=== PATIENT | female | born 1995 | race African-American/Black ===

== ENCOUNTER 2020-06-20 23:25 | Inpatient (IN) | payer OTHER ==
[2020-06-20 23:32] VITALS: BMI 18.8
[2020-06-21 01:20] LABS: BASO % 1.9 % (0-2.0); LYMPH % 46.8 % (8-40); MCHC 27.8 g/dl (32.0-36.0); MEAN CELL VOLUME 54.8 fl (80-96); MEAN PLT VOLUME 8.9 fl (7.5-11.1); MONO % 9.9 % (3.8-10.2); NEUT % 40.4 % (42.8-82.8); PLATELET COUNT 370 K/MM3 (134-434); RDW 20.5 % (11.6-15.6); WHITE BLOOD COUNT 5.7 K/mm3 (4.0-10.0)
[2020-06-21 01:24] LABS: MCH 15.2 pg (25.7-33.7)
[2020-06-21 01:26] LABS: HEMOGLOBIN 6.4 GM/dL (10.7-15.3)
[2020-06-21 01:39] LABS: PHENCYCLIDINE,URINE NEGATIVE ng/ml (CUTOFF=25); URINE BARBITURATES NEGATIVE ng/ml (CUTOFF=200); URINE BENZODIAZEPINES NEGATIVE ng/ml (CUTOFF=200)
[2020-06-21 01:40] LABS: CALCIUM 8.7 mg/dL (8.5-10.1); COCAINE, UR NEGATIVE ng/ml (CUTOFF=300); METHADONE, UR NEGATIVE ng/ml (CUTOFF=300); URINE AMPHETAMINES NEGATIVE ng/ml (CUTOFF=500)
[2020-06-21 01:41] LABS: ALBUMIN 4.3 g/dl (3.4-5.0); BLOOD UREA NITROGEN 9.2 mg/dL (7-18)
[2020-06-21 01:44] LABS: CREATININE 0.7 mg/dL (0.55-1.3)
[2020-06-21 01:46] LABS: BILIRUBIN,TOTAL 0.4 mg/dL (0.2-1); TOT PROT 8.1 g/dl (6.4-8.2)
[2020-06-21 01:49] LABS: OPIATES, URI POSITIVE ng/ml (CUTOFF=300)
[2020-06-21 07:34] LABS: ANISOCYTOSIS 2+; MACROCYTOSIS 0; PLATELET ESTIMATE NORMAL
[2020-06-21 08:55] LABS: HEMATOCRIT 25.7 % (32.4-45.2); HEMOGLOBIN 7.4 GM/dL (10.7-15.3); MCHC 28.9 g/dl (32.0-36.0); MEAN CELL VOLUME 58.7 fl (80-96); MEAN PLT VOLUME 9.6 fl (7.5-11.1); PLATELET COUNT 311 K/MM3 (134-434); RBC 4.38 M/mm3 (3.60-5.2); RDW 21.2 % (11.6-15.6); RETICULOCYTES 1.12 % (0.5-1.5); WHITE BLOOD COUNT 4.1 K/mm3 (4.0-10.0)
[2020-06-21 09:02] LABS: INR 1.14 (0.83-1.09); PROTHROMBIN TIME (PATIENT) 13.7 SEC (9.7-13.0)
[2020-06-21 09:05] LABS: ACTIVATED PTT 31.3 SECONDS (25.2-36.5)
[2020-06-21 09:14] LABS: CHLORIDE 107 mmol/L (98-107); SODIUM 140 mmol/L (136-145)
[2020-06-21 09:16] LABS: ANION GAP 4 MMOL/L (8-16); BLOOD UREA NITROGEN 9.4 mg/dL (7-18); CO2 29 mmol/L (21-32); GLUCOSE,RANDOM 84 mg/dL (74-106); MAGNESIUM 1.9 mg/dL (1.8-2.4)
[2020-06-21 09:17] LABS: ALBUMIN 3.7 g/dl (3.4-5.0); CALCIUM 8.7 mg/dL (8.5-10.1)
[2020-06-21 09:19] LABS: SGPT/ALT 10 U/L (13-61)
[2020-06-21 09:20] LABS: CREATININE 0.7 mg/dL (0.55-1.3); SGOT/AST 12 U/L (15-37)
[2020-06-21 09:21] LABS: BILIRUBIN,TOTAL 1.5 mg/dL (0.2-1)
[2020-06-21 09:22] LABS: ALK PHOS 58 U/L (45-117)
[2020-06-21] MEDS ORDERED: ENOXAPARIN NA (PORCINE) 40 MG/0.4 ML DISP.SYRIN SQ SCH (10:00)
[2020-06-21] MEDS ORDERED: ENOXAPARIN NA (PORCINE) 40 MG/0.4 ML DISP.SYRIN SQ ONE (10:28)
[2020-06-21] MEDS ORDERED: IRON SUCROSE INJECTION 200 MG in SODIUM CHLORIDE 90 ML IVPB ONE (10:30)
[2020-06-21 15:04] VITALS: BP 105/67; PULSE 91; TEMP 98.9
[2020-06-23 12:07] LABS: RISTOCETIN CO-FACTOR 89 % (50-200); VON WILLEBRAND ANTIGEN 160 % (50-200)
== END 2020-06-21 14:50 | disposition home or self-care (01) | DRG 663 ==
LOC: JER 23:25 → JERBED 06-21 02:03
PROVIDERS: ADMIT Internal Medicine; ATTEND Internal Medicine
PROC: 30233N1 Transfusion of Nonautologous Red Blood Cells into Peripheral Vein, Percutaneous Approach (ICD-10-PCS; principal; 2020-06-21)
DX: D50.9 Iron deficiency anemia, unspecified (principal); J45.909 Unspecified asthma, uncomplicated; F12.10 Cannabis abuse, uncomplicated; F11.10 Opioid abuse, uncomplicated; M79.661 Pain in right lower leg; T40.2X5A Adverse effect of other opioids, initial encounter; D25.9 Leiomyoma of uterus, unspecified
CPT/HCPCS: 36415; 36430; 74176-TC; 76856-TC; 80053; 80307; 82728; 83021; 83540; 83550; 83735; 84484; 84703; 85025; 85027; 85045; 85240; 85246; 85610; 85660; 85730; 86850; 86900; 86901; 86922; 93005; 93010; 99285-25; C9803; J1756; P9058; U0003; U0005

== ENCOUNTER 2020-07-03 19:25 | Emergency (ER) | payer OTHER ==
[2020-07-03 19:30] VITALS: TEMP 97; BMI 19.2
[2020-07-03] MEDS ORDERED: ONDANSETRON 4 MG/2 ML VIAL IVPUSH ONE (20:02)
[2020-07-03] MEDS ORDERED: SODIUM CHLORIDE 0.9% 500 ML INFUS.BAG IV ONE (20:02)
[2020-07-03] MEDS ORDERED: ONDANSETRON 4 MG/2 ML VIAL ONE (20:13)
[2020-07-03 20:34] LABS: BASO % 0.7 % (0-2.0); EOS % 0.2 % (0-4.5); HEMATOCRIT 31.4 % (32.4-45.2); HEMOGLOBIN 9.1 GM/dL (10.7-15.3); LYMPH % 13.6 % (8-40); MCHC 28.9 g/dl (32.0-36.0); MEAN CELL VOLUME 61.2 fl (80-96); MONO % 5.6 % (3.8-10.2); NEUT % 79.9 % (42.8-82.8); RBC 5.12 M/mm3 (3.60-5.2); RDW 28.4 % (11.6-15.6); WHITE BLOOD COUNT 9.5 K/mm3 (4.0-10.0)
[2020-07-03 20:37] LABS: MCH 17.7 pg (25.7-33.7)
[2020-07-03 20:54] LABS: CALCIUM 9.8 mg/dL (8.5-10.1)
[2020-07-03 20:55] LABS: BLOOD UREA NITROGEN 7.9 mg/dL (7-18)
[2020-07-03 20:58] LABS: CREATININE 0.7 mg/dL (0.55-1.3)
[2020-07-03 21:00] LABS: BILIRUBIN,TOTAL 0.5 mg/dL (0.2-1); TOT PROT 8.8 g/dl (6.4-8.2)
[2020-07-03 21:14] LABS: ANISOCYTOSIS 2+; MACROCYTOSIS 0; OVALOCYTE 1+; PLATELET ESTIMATE NORMAL; TARGET CELLS 1+
[2020-07-03 21:15] LABS: PLATELET COUNT 210 K/MM3 (134-434)
[2020-07-03 21:16] LABS: MEAN PLT VOLUME 9.6 fl (7.5-11.1)
[2020-07-03 21:30] LABS: HCG,QUALITATIVE URINE Negative
[2020-07-03 21:31] LABS: EPI CELLS 16 /uL (0-25.1); HYALINE CASTS 5 /uL (0-3.1); PH,URINE 6.5 (5.0-8.0); URINE APPEARANCE TURBID; URINE BACTERIA 417 /uL (0-1359); URINE BILIRUBIN NEGATIVE (NEGATIVE); URINE COLOR DK YELLOW; URINE GLUCOSE (UA) NEGATIVE (NEGATIVE); URINE KETONE 3+ (NEGATIVE); URINE LEUK ESTERASE 3+ (NEGATIVE); URINE NITRITE NEGATIVE (NEGATIVE); URINE PROTEIN 2+ (NEGATIVE); URINE RBC 801 /uL (0-23.9); URINE WBC 6447 /uL (0-25.8)
[2020-07-03 21:32] LABS: ALBUMIN 4.7 g/dl (3.4-5.0)
[2020-07-03 22:01] VITALS: BP 110/74; PULSE 99
== END 2020-07-03 22:02 | disposition home or self-care (01) ==
LOC: JER 19:25
PROC: 3E033GC Introduction of Other Therapeutic Substance into Peripheral Vein, Percutaneous Approach (ICD-10-PCS; principal; 2020-07-03)
DX: N39.0 Urinary tract infection, site not specified (principal)
CPT/HCPCS: 36415; 80053; 81003; 84703; 85025; 87086; 87186; 99284-25

== ENCOUNTER 2020-08-19 15:33 | Emergency (ER) | payer OTHER ==
[2020-08-19 15:44] VITALS: BP 105/69; PULSE 96; TEMP 98.1; BMI 18.8
[2020-08-19] MEDS ORDERED: KETOROLAC TROMETHAMINE 60 MG/2 ML VIAL IVPUSH ONE (16:18)
[2020-08-19] MEDS ORDERED: FAMOTIDINE 20 MG/50 ML IVPB 20 MG/50 ML MG IVPB ONE ×2 (16:19→17:38)
[2020-08-19] MEDS ORDERED: LIDOCAINE 5% TOPICAL PATCH TP ONE (16:20)
[2020-08-19] MEDS ORDERED: KETOROLAC TROMETHAMINE 30 MG/1 ML VIAL ONE ×2 (17:37→17:38)
[2020-08-19] MEDS ORDERED: LIDOCAINE 5% TOPICAL PATCH ONE ×2 (17:37→17:38)
[2020-08-19 18:23] LABS: PH,URINE >= 9.0 (5.0-8.0); URINE APPEARANCE CLEAR; URINE BILIRUBIN NEGATIVE (NEGATIVE); URINE COLOR YELLOW; URINE GLUCOSE (UA) NEGATIVE (NEGATIVE); URINE KETONE NEGATIVE (NEGATIVE); URINE LEUK ESTERASE NEGATIVE (NEGATIVE); URINE NITRITE NEGATIVE (NEGATIVE); URINE PROTEIN NEGATIVE (NEGATIVE)
[2020-08-19 18:33] LABS: COCAINE, UR NEGATIVE (NEGATIVE); URINE BARBITURATES NEGATIVE (NEGATIVE)
[2020-08-19 18:34] LABS: OPIATES, URI NEGATIVE (NEGATIVE); PHENCYCLIDINE,URINE NEGATIVE (NEGATIVE)
[2020-08-19 18:38] LABS: METHADONE, UR NEGATIVE (NEGATIVE); URINE AMPHETAMINES NEGATIVE (NEGATIVE); URINE BENZODIAZEPINES NEGATIVE (NEGATIVE)
== END 2020-08-19 19:26 | disposition home or self-care (01) ==
LOC: JER 15:33
PROC: 3E033GC Introduction of Other Therapeutic Substance into Peripheral Vein, Percutaneous Approach (ICD-10-PCS; principal; 2020-08-19)
PROC: 3E0333Z Introduction of Anti-inflammatory into Peripheral Vein, Percutaneous Approach (ICD-10-PCS; 2020-08-19)
DX: R11.11 Vomiting without nausea (principal)
CPT/HCPCS: 80307; 81003; 87086; 87186; 99284-25

== ENCOUNTER 2020-08-26 04:30 | Emergency (ER) | payer OTHER ==
[2020-08-26 04:46] VITALS: BP 116/68; PULSE 91; TEMP 98.5; BMI 18.3
[2020-08-26] MEDS ORDERED: METOCLOPRAMIDE HCL INJECTION 10 MG/2 ML VIAL IVPB ONE (05:23)
[2020-08-26] MEDS ORDERED: ACETAMINOPHEN 1000 MG/100 ML VIAL (NON FORMULARY) IVPB ONE (05:24)
[2020-08-26] MEDS ORDERED: SODIUM CHLORIDE 0.9% 1000 ML INFUS.BAG IV ONE (05:24)
[2020-08-26] MEDS ORDERED: METOCLOPRAMIDE HCL INJECTION 10 MG/2 ML VIAL ONE (05:36)
[2020-08-26] MEDS ORDERED: ACETAMINOPHEN INJECTION 100 ML IVPB ONE (05:36)
[2020-08-26 06:29] LABS: BASO % 1.2 % (0-2.0); EOS % 0.3 % (0-4.5); HEMATOCRIT 28.3 % (32.4-45.2); HEMOGLOBIN 8.2 GM/dL (10.7-15.3); LYMPH % 21.3 % (8-40); MCHC 29.2 g/dl (32.0-36.0); MEAN CELL VOLUME 63.4 fl (80-96); MONO % 8.5 % (3.8-10.2); NEUT % 68.7 % (42.8-82.8); PLATELET COUNT 174 10^3/uL (134-434); RBC 4.46 M/mm3 (3.60-5.2); RDW 21.6 % (11.6-15.6); WHITE BLOOD COUNT 6.1 K/mm3 (4.0-10.0)
[2020-08-26 06:32] LABS: EPI CELLS 18 /uL (0-25.1); HYALINE CASTS 0 /uL (0-3.1); URINE APPEARANCE CLEAR; URINE BACTERIA 205 /uL (0-1359); URINE BILIRUBIN NEGATIVE (NEGATIVE); URINE COLOR YELLOW; URINE GLUCOSE (UA) NEGATIVE (NEGATIVE); URINE KETONE NEGATIVE (NEGATIVE); URINE LEUK ESTERASE TRACE (NEGATIVE); URINE NITRITE NEGATIVE (NEGATIVE); URINE PROTEIN NEGATIVE (NEGATIVE); URINE RBC 5 /uL (0-23.9); URINE WBC 12 /uL (0-25.8)
[2020-08-26 06:34] LABS: MCH 18.5 pg (25.7-33.7)
[2020-08-26 06:48] LABS: CALCIUM 8.6 mg/dL (8.5-10.1)
[2020-08-26 06:52] LABS: CREATININE 0.6 mg/dL (0.55-1.3)
[2020-08-26 06:53] LABS: BILIRUBIN,TOTAL 0.5 mg/dL (0.2-1); TOT PROT 7.8 g/dl (6.4-8.2)
[2020-08-26 08:14] LABS: ANISOCYTOSIS 3+; MACROCYTOSIS 0; PLATELET ESTIMATE NORMAL
== END 2020-08-26 07:03 | disposition home or self-care (01) ==
LOC: JER 04:30
PROC: 3E0333Z Introduction of Anti-inflammatory into Peripheral Vein, Percutaneous Approach (ICD-10-PCS; principal; 2020-08-26)
PROC: 3E033GC Introduction of Other Therapeutic Substance into Peripheral Vein, Percutaneous Approach (ICD-10-PCS; 2020-08-26)
DX: R30.0 Dysuria (principal); R51.9 Headache, unspecified; R10.9 Unspecified abdominal pain
CPT/HCPCS: 36415; 80053; 81003; 83690; 84703; 85025; 87086; 99284-25; J0131

== ENCOUNTER 2020-09-08 11:25 | Emergency (ER) | payer OTHER ==
[2020-09-08 11:30] VITALS: BP 105/66; PULSE 100; TEMP 98.2; BMI 18.8
[2020-09-08 13:43] LABS: BASO % 1.6 % (0-2.0); EOS % 0.6 % (0-4.5); HEMATOCRIT 26.9 % (32.4-45.2); HEMOGLOBIN 7.9 GM/dL (10.7-15.3); LYMPH % 36.7 % (8-40); MCHC 29.3 g/dl (32.0-36.0); MEAN CELL VOLUME 62.8 fl (80-96); MEAN PLT VOLUME 8.9 fl (7.5-11.1); MONO % 6.9 % (3.8-10.2); NEUT % 54.2 % (42.8-82.8); PLATELET COUNT 278 10^3/uL (134-434); RBC 4.29 M/mm3 (3.60-5.2); WHITE BLOOD COUNT 3.8 K/mm3 (4.0-10.0)
[2020-09-08 13:57] LABS: INR 1.03 (0.83-1.09); PROTHROMBIN TIME (PATIENT) 12.4 SEC (9.7-13.0)
[2020-09-08 13:58] LABS: MCH 18.4 pg (25.7-33.7)
[2020-09-08 14:03] LABS: CHLORIDE 108 mmol/L (98-107); SODIUM 142 mmol/L (136-145)
[2020-09-08 14:07] LABS: ANION GAP 7 MMOL/L (8-16); BLOOD UREA NITROGEN 9.2 mg/dL (7-18); CALCIUM 9.1 mg/dL (8.5-10.1); CO2 27 mmol/L (21-32); GLUCOSE,RANDOM 90 mg/dL (74-106)
[2020-09-08 14:10] LABS: CREATININE 0.6 mg/dL (0.55-1.3)
[2020-09-08 14:11] LABS: SGOT/AST 19 U/L (15-37); SGPT/ALT 24 U/L (13-61)
[2020-09-08 14:12] LABS: BILIRUBIN,TOTAL 0.4 mg/dL (0.2-1); TOT PROT 7.7 g/dl (6.4-8.2)
[2020-09-08 14:13] LABS: ALK PHOS 55 U/L (45-117)
[2020-09-08 14:57] LABS: ANISOCYTOSIS 3+; MACROCYTOSIS 0; PLATELET ESTIMATE NORMAL
== END 2020-09-08 15:14 | disposition home or self-care (01) ==
LOC: JER 11:25
DX: D64.9 Anemia, unspecified (principal)
CPT/HCPCS: 36415; 80053; 84484; 84702; 85025; 85610; 86850; 86900; 86901; 99284-25

== ENCOUNTER 2020-12-05 00:19 | Emergency (ER) | payer OTHER ==
[2020-12-05 00:40] VITALS: BP 93/60; PULSE 101; TEMP 97.6; BMI 18.8
== END 2020-12-05 03:53 | disposition home or self-care (01) ==
LOC: JER 00:19
DX: R00.2 Palpitations (principal); R06.02 Shortness of breath; Z11.52 Encounter for screening for COVID-19
CPT/HCPCS: 71046-TC-FY; 93005; 93010; 99284-25; C9803; U0003; U0005

== ENCOUNTER 2021-02-07 18:38 | Observation (INO) | payer OTHER ==
[2021-02-07 18:55] VITALS: BMI 21.4
[2021-02-07] MEDS ORDERED: ACETAMINOPHEN 500 MG TABLET (FP) PO ONE (19:58)
[2021-02-07] MEDS ORDERED: ACETAMINOPHEN 500 MG TABLET (FP) ONE (20:18)
[2021-02-07 20:52] LABS: BASO % 1.5 % (0-2.0); EOS % 1.3 % (0-4.5); HEMATOCRIT 24.9 % (32.4-45.2); LYMPH % 22.1 % (8-40); MCHC 27.3 g/dl (32.0-36.0); MEAN CELL VOLUME 55.8 fl (80-96); MEAN PLT VOLUME 9.6 fl (7.5-11.1); MONO % 16.4 % (3.8-10.2); NEUT % 58.7 % (42.8-82.8); PLATELET COUNT 147 10^3/uL (134-434); RBC 4.45 M/mm3 (3.60-5.2); RDW 19.8 % (11.6-15.6); WHITE BLOOD COUNT 5.8 K/mm3 (4.0-10.0)
[2021-02-07 20:56] LABS: CHLORIDE 105 mmol/L (98-107); SODIUM 140 mmol/L (136-145)
[2021-02-07 20:58] LABS: CALCIUM 8.5 mg/dL (8.5-10.1); MCH 15.2 pg (25.7-33.7)
[2021-02-07 20:59] LABS: ALBUMIN 3.6 g/dl (3.4-5.0); ANION GAP 9 MMOL/L (8-16); BLOOD UREA NITROGEN 13.7 mg/dL (7-18); CO2 26 mmol/L (21-32); GLUCOSE,RANDOM 92 mg/dL (74-106); HEMOGLOBIN 6.8 GM/dL (10.7-15.3)
[2021-02-07 21:01] LABS: SGPT/ALT 18 U/L (13-61)
[2021-02-07 21:02] LABS: CREATININE 0.6 mg/dL (0.55-1.3); SGOT/AST 19 U/L (15-37)
[2021-02-07 21:03] LABS: BILIRUBIN,TOTAL 0.4 mg/dL (0.2-1); TOT PROT 7.5 g/dl (6.4-8.2)
[2021-02-07 21:05] LABS: ALK PHOS 54 U/L (45-117)
[2021-02-07 21:34] LABS: ANISOCYTOSIS 3+; MACROCYTOSIS 0; PLATELET ESTIMATE DECREASED
[2021-02-07 21:51] LABS: INR 1.11 (0.83-1.09)
[2021-02-07 21:54] LABS: ACTIVATED PTT 29.3 SECONDS (25.2-36.5)
[2021-02-07] MEDS ORDERED: SODIUM CHLORIDE 0.9% 500 ML INFUS.BAG IV ONE (22:12)
[2021-02-07] MEDS ORDERED: POLYETHYLENE GLYCOL (HEALTHYLAX) 3350 17 GM PACKET PO PRN (23:42)
[2021-02-08] MEDS ORDERED: ALBUTEROL SO4 HFA INHALER IH PRN (02:35)
[2021-02-08 07:27] LABS: EOS % 0.7 % (0-4.5); HEMATOCRIT 30.4 % (32.4-45.2); LYMPH % 13.7 % (8-40); MCHC 29.6 g/dl (32.0-36.0); MEAN CELL VOLUME 60.8 fl (80-96); MEAN PLT VOLUME 8.8 fl (7.5-11.1); MONO % 14.5 % (3.8-10.2); NEUT % 70.1 % (42.8-82.8); PLATELET COUNT 124 10^3/uL (134-434); RDW 27.4 % (11.6-15.6); WHITE BLOOD COUNT 7.1 K/mm3 (4.0-10.0)
[2021-02-08 07:43] VITALS: TEMP 98.8
[2021-02-08 07:46] LABS: CALCIUM 8.7 mg/dL (8.5-10.1)
[2021-02-08 07:47] LABS: ALBUMIN 3.4 g/dl (3.4-5.0); BLOOD UREA NITROGEN 10.5 mg/dL (7-18)
[2021-02-08 07:50] LABS: CREATININE 0.5 mg/dL (0.55-1.3)
[2021-02-08 07:51] LABS: BILIRUBIN,TOTAL 1.9 mg/dL (0.2-1)
[2021-02-08 07:52] LABS: TOT PROT 7.1 g/dl (6.4-8.2)
[2021-02-08] MEDS ORDERED: DOCUSATE SODIUM 100 MG CAPSULE (FP) PO ONE (07:52)
[2021-02-08] MEDS ORDERED: FERROUS SO4 325 MG TABLET (FP) ONE (07:52)
[2021-02-08 09:27] VITALS: BP 132/87; PULSE 95
[2021-02-08] MEDS ORDERED: FERROUS SO4 325 MG TABLET (FP) PO SCH (10:00)
[2021-02-08] MEDS ORDERED: DOCUSATE SODIUM 100 MG CAPSULE (FP) PO SCH (10:00)
== END 2021-02-08 14:05 | disposition left against medical advice (07) ==
LOC: JER 18:38 → JERBED 21:49
PROVIDERS: ADMIT Hospitalist; ATTEND Nurse Practitioner Acute Care
PROC: 30233N1 Transfusion of Nonautologous Red Blood Cells into Peripheral Vein, Percutaneous Approach (ICD-10-PCS; principal; 2021-02-07)
DX: D50.8 Other iron deficiency anemias (principal); R07.89 Other chest pain; N93.9 Abnormal uterine and vaginal bleeding, unspecified; J45.909 Unspecified asthma, uncomplicated; Z88.1 Allergy status to other antibiotic agents; N92.1 Excessive and frequent menstruation with irregular cycle; D22.71 Melanocytic nevi of right lower limb, including hip; L28.0 Lichen simplex chronicus
CPT/HCPCS: 36415; 36430; 71045-TC-FY; 80053; 82550; 84484; 84703; 85025; 85610; 85730; 86850; 86900; 86901; 86922; 87804; 93005; 93010; 99285-25; C9803-CS; G0378; P9058; U0003; U0005

== ENCOUNTER 2021-06-17 10:15 | Emergency (ER) | payer OTHER ==
[2021-06-17 10:25] VITALS: BP 111/73; PULSE 100; TEMP 97.4; BMI 19.5
== END 2021-06-17 11:34 | disposition home or self-care (01) ==
LOC: JERFT 10:15 → JER 10:15 → JERFT 11:34
PROC: 0H93XZZ Drainage of Left Ear Skin, External Approach (ICD-10-PCS; principal; 2021-06-17)
DX: L72.0 Epidermal cyst (principal)
CPT/HCPCS: 99283-25

== ENCOUNTER 2021-06-25 01:30 | Emergency (ER) | payer OTHER ==
[2021-06-25 01:51] VITALS: BP 117/72; PULSE 85; TEMP 98.4; BMI 20.3
[2021-06-25] MEDS ORDERED: ACETAMINOPHEN 325 MG TABLET (FP) PO ONE (03:50)
[2021-06-25] MEDS ORDERED: ACETAMINOPHEN 325 MG TABLET (FP) ONE (03:54)
[2021-06-25] MEDS ORDERED: KETOROLAC TROMETHAMINE 30 MG/1 ML VIAL IM ONE (04:26)
[2021-06-25] MEDS ORDERED: BUPIVACAINE HCL 0.25% 125 MG/50 ML VIAL INF ONE (04:32)
[2021-06-25] MEDS ORDERED: BUPIVACAINE HCL/PF 0.5% (5MG/ML) 10 ML VIAL ONE (04:42)
[2021-06-25] MEDS ORDERED: KETOROLAC TROMETHAMINE 30 MG/1 ML VIAL ONE (04:43)
== END 2021-06-25 05:31 | disposition home or self-care (01) ==
LOC: JER 01:30
PROC: 3E023GC Introduction of Other Therapeutic Substance into Muscle, Percutaneous Approach (ICD-10-PCS; principal; 2021-06-25)
DX: K08.89 Other specified disorders of teeth and supporting structures (principal)
CPT/HCPCS: 99284-25

== ENCOUNTER 2021-07-09 08:18 | Emergency (ER) | payer OTHER ==
[2021-07-09 08:46] VITALS: BP 115/71; PULSE 105; TEMP 98; BMI 20.3
== END 2021-07-09 09:49 | disposition home or self-care (01) ==
LOC: JER 08:18 → JERFT 08:18
DX: S60.042A Contusion of left ring finger without damage to nail, initial encounter (principal); W20.8XXA Other cause of strike by thrown, projected or falling object, initial encounter
CPT/HCPCS: 73140-TC-LT-FY; 99283-25

== ENCOUNTER 2021-09-05 11:30 | Emergency (ER) | payer OTHER ==
[2021-09-05 11:44] VITALS: RESP 18; TEMP 98.9; BMI 20.3
[2021-09-05] MEDS ORDERED: SODIUM CHLORIDE 1,000 ML IV ONE (12:36)
[2021-09-05] MEDS ORDERED: METOCLOPRAMIDE HCL INJECTION 10 MG/2 ML VIAL IVPUSH ONE (12:37)
[2021-09-05] MEDS ORDERED: METOCLOPRAMIDE HCL INJECTION 10 MG/2 ML VIAL ONE (12:42)
[2021-09-05 12:50] LABS: BASO % 1.2 % (0-2.0); EOS % 0.9 % (0-4.5); HEMATOCRIT 27.9 % (32.4-45.2); HEMOGLOBIN 7.9 GM/dL (10.7-15.3); LYMPH % 30.4 % (8-40); MCHC 28.4 g/dl (32.0-36.0); MEAN CELL VOLUME 57.9 fl (80-96); MEAN PLT VOLUME 8.6 fl (7.5-11.1); MONO % 8.7 % (3.8-10.2); NEUT % 58.8 % (42.8-82.8); PLATELET COUNT 280 10^3/uL (134-434); RBC 4.82 M/mm3 (3.60-5.2); RDW 18.9 % (11.6-15.6); WHITE BLOOD COUNT 4.6 K/mm3 (4.0-10.0)
[2021-09-05 13:04] LABS: CHLORIDE 105 mmol/L (98-107); SODIUM 140 mmol/L (136-145)
[2021-09-05 13:06] LABS: ALBUMIN 4.3 g/dl (3.4-5.0); ANION GAP 7 MMOL/L (8-16); CALCIUM 9.4 mg/dL (8.5-10.1); CO2 28 mmol/L (21-32)
[2021-09-05 13:07] LABS: BLOOD UREA NITROGEN 6.5 mg/dL (7-18); GLUCOSE,RANDOM 75 mg/dL (74-106)
[2021-09-05 13:09] LABS: SGPT/ALT 19 U/L (13-61)
[2021-09-05 13:10] LABS: CREATININE 0.6 mg/dL (0.55-1.3); SGOT/AST 22 U/L (15-37)
[2021-09-05 13:11] LABS: BILIRUBIN,TOTAL 0.9 mg/dL (0.2-1); TOT PROT 8.4 g/dl (6.4-8.2)
[2021-09-05 13:13] LABS: ALK PHOS 61 U/L (45-117)
[2021-09-05 14:07] LABS: MCH 16.5 pg (25.7-33.7)
[2021-09-05 14:44] LABS: ANISOCYTOSIS 3+; MACROCYTOSIS 0
[2021-09-05 14:48] LABS: EPI CELLS 20 /uL (0-25.1); HYALINE CASTS 1 /uL (0-3.1); PH,URINE 6.5 (5.0-8.0); URINE APPEARANCE CLEAR; URINE BACTERIA 313 /uL (0-1359); URINE BILIRUBIN NEGATIVE (NEGATIVE); URINE COLOR YELLOW; URINE GLUCOSE (UA) NEGATIVE (NEGATIVE); URINE KETONE NEGATIVE (NEGATIVE); URINE LEUK ESTERASE NEGATIVE (NEGATIVE); URINE NITRITE NEGATIVE (NEGATIVE); URINE PROTEIN NEGATIVE (NEGATIVE); URINE RBC 6 /uL (0-23.9); URINE WBC 6 /uL (0-25.8)
[2021-09-05 15:08] VITALS: BP 109/68; PULSE 93
== END 2021-09-05 15:07 | disposition home or self-care (01) ==
LOC: JER 11:30
PROC: 3E033GC Introduction of Other Therapeutic Substance into Peripheral Vein, Percutaneous Approach (ICD-10-PCS; principal; 2021-09-05)
PROC: 3E033GC Introduction of Other Therapeutic Substance into Peripheral Vein, Percutaneous Approach (ICD-10-PCS; 2021-09-05)
PROC: 3E0337Z Introduction of Electrolytic and Water Balance Substance into Peripheral Vein, Percutaneous Approach (ICD-10-PCS; 2021-09-05)
DX: D64.9 Anemia, unspecified (principal)
CPT/HCPCS: 36415; 71045-TC-FY; 80053; 81003; 84484; 85025; 86850; 86900; 86901; 93005; 93010; 99285-25

== ENCOUNTER 2022-02-05 09:50 | Emergency (ER) | payer OTHER ==
[2022-02-05 09:55] VITALS: BP 112/63; PULSE 94; RESP 18; TEMP 98.2; BMI 19.5
[2022-02-05] MEDS ORDERED: CYCLOBENZAPRINE HCL 10 MG TABLET (FP) PO ONE ×2 (10:36→11:09)
[2022-02-05] MEDS ORDERED: IBUPROFEN 600 MG TABLET (FP) PO ONE (10:36)
[2022-02-05] MEDS ORDERED: ACETAMINOPHEN 500 MG TABLET (FP) PO ONE (10:36)
== END 2022-02-05 11:46 | disposition home or self-care (01) ==
LOC: JERFT 09:50
DX: M25.561 Pain in right knee (principal); X50.0XXA Overexertion from strenuous movement or load, initial encounter
CPT/HCPCS: 73562-TC-RT-FY; 99283-25

== ENCOUNTER 2022-02-25 10:36 | Observation (INO) | payer OTHER ==
[2022-02-25 11:22] LABS: EOS % 0.5 % (0-4.5); HEMATOCRIT 24.8 % (32.4-45.2); LYMPH % 35.4 % (8-40); MCHC 27.4 g/dl (32.0-36.0); MEAN CELL VOLUME 55.6 fl (80-96); MEAN PLT VOLUME 8.8 fl (7.5-11.1); MONO % 6.7 % (3.8-10.2); NEUT % 56.4 % (42.8-82.8); PLATELET COUNT 170 10^3/uL (134-434); RBC 4.45 M/mm3 (3.60-5.2); RDW 20.3 % (11.6-15.6); WHITE BLOOD COUNT 5.1 K/mm3 (4.0-10.0)
[2022-02-25 11:30] LABS: MCH 15.2 pg (25.7-33.7)
[2022-02-25 11:31] LABS: HEMOGLOBIN 6.8 GM/dL (10.7-15.3)
[2022-02-25 11:48] LABS: CALCIUM 9.2 mg/dL (8.5-10.1)
[2022-02-25 11:49] LABS: ALBUMIN 4.2 g/dl (3.4-5.0); BLOOD UREA NITROGEN 10.1 mg/dL (7-18)
[2022-02-25 11:52] LABS: CREATININE 0.6 mg/dL (0.55-1.3)
[2022-02-25 11:54] LABS: BILIRUBIN,TOTAL 0.4 mg/dL (0.2-1); TOT PROT 7.6 g/dl (6.4-8.2)
[2022-02-25 12:34] LABS: ANISOCYTOSIS 3+; MACROCYTOSIS 0; OVALOCYTE 1+
[2022-02-25 12:46] LABS: INR 1.11 (0.83-1.09); PROTHROMBIN TIME (PATIENT) 12.8 SEC (9.7-13.0)
[2022-02-25 17:09] LABS: URINE APPEARANCE CLEAR; URINE BILIRUBIN NEGATIVE (NEGATIVE); URINE COLOR YELLOW; URINE GLUCOSE (UA) NEGATIVE (NEGATIVE); URINE KETONE NEGATIVE (NEGATIVE); URINE LEUK ESTERASE NEGATIVE (NEGATIVE); URINE NITRITE NEGATIVE (NEGATIVE); URINE PROTEIN NEGATIVE (NEGATIVE); URINE UROBILINOGEN 0.2 mg/dL (0.2-1.0)
[2022-02-25 21:03] LABS: EOS % 1.3 % (0-4.5); HEMATOCRIT 25.1 % (32.4-45.2); HEMOGLOBIN 7.3 GM/dL (10.7-15.3); LYMPH % 41.6 % (8-40); MEAN CELL VOLUME 58.6 fl (80-96); MONO % 10.1 % (3.8-10.2); RBC 4.28 M/mm3 (3.60-5.2); RDW 22.6 % (11.6-15.6); WHITE BLOOD COUNT 5.7 K/mm3 (4.0-10.0)
[2022-02-25 21:05] LABS: MEAN PLT VOLUME 9.4 fl (7.5-11.1); PLATELET COUNT 150 10^3/uL (134-434)
[2022-02-25] MEDS ORDERED: DOCUSATE SODIUM 100 MG CAPSULE (FP) PO ONE (22:41)
[2022-02-25] MEDS: DOCUSATE SODIUM 100 MG CAPSULE (FP) PO SCH ×2 (22:41→22:48)
[2022-02-26 08:45] LABS: BASO % 0.9 % (0-2.0); EOS % 1.4 % (0-4.5); HEMATOCRIT 29.6 % (32.4-45.2); HEMOGLOBIN 8.5 GM/dL (10.7-15.3); LYMPH % 30.6 % (8-40); MCHC 28.6 g/dl (32.0-36.0); MEAN CELL VOLUME 58.8 fl (80-96); MEAN PLT VOLUME 9.2 fl (7.5-11.1); MONO % 8.2 % (3.8-10.2); NEUT % 58.9 % (42.8-82.8); PLATELET COUNT 173 10^3/uL (134-434); RBC 5.03 M/mm3 (3.60-5.2); RDW 21.4 % (11.6-15.6)
[2022-02-26 08:50] LABS: MCH 16.9 pg (25.7-33.7)
[2022-02-26 09:04] LABS: CALCIUM 9.2 mg/dL (8.5-10.1)
[2022-02-26 09:05] VITALS: PULSE 90; BMI 18.6
[2022-02-26 09:05] LABS: MAGNESIUM 1.9 mg/dL (1.8-2.4)
[2022-02-26 09:08] LABS: CREATININE 0.6 mg/dL (0.55-1.3); PHOSPHOROUS 3.2 mg/dL (2.5-4.9)
[2022-02-26 09:09] LABS: TOT PROT 7.5 g/dl (6.4-8.2)
[2022-02-26] MEDS ORDERED: IRON SUCROSE INJECTION 200 MG in SODIUM CHLORIDE 90 ML IVPB ONE (10:00)
[2022-02-26] MEDS: DOCUSATE SODIUM 100 MG CAPSULE (FP) PO SCH (10:27)
[2022-02-26 16:01] VITALS: BP 102/61; RESP 18; TEMP 98.6
[2022-02-26] MEDS ORDERED: POLYETHYLENE GLYCOL (HEALTHYLAX) 3350 17 GM PACKET PO SCH (22:00)
== END 2022-02-26 16:32 | disposition home or self-care (01) ==
LOC: JER 10:36 → JERBED 16:04 → J8W 02-26 07:46
PROVIDERS: ADMIT Internal Medicine; ATTEND Internal Medicine
PROC: 30233N1 Transfusion of Nonautologous Red Blood Cells into Peripheral Vein, Percutaneous Approach (ICD-10-PCS; principal; 2022-02-25)
DX: D50.0 Iron deficiency anemia secondary to blood loss (chronic) (principal); N93.9 Abnormal uterine and vaginal bleeding, unspecified; J45.909 Unspecified asthma, uncomplicated; K59.00 Constipation, unspecified; Z88.0 Allergy status to penicillin
CPT/HCPCS: 0241U-QW; 36415; 36430; 74178-TC; 80053; 81003; 82272; 82728; 83010; 83540; 83550; 83735; 84100; 84466; 84703; 85025; 85610; 85730; 86850; 86900; 86901; 86922; 87086; 94010; 99291; G0378; J1756; P9058

== ENCOUNTER 2022-05-10 18:59 | Emergency (ER) | payer OTHER ==
[2022-05-10 19:13] VITALS: BP 105/58; PULSE 90; RESP 18; TEMP 98.4; BMI 19.0
[2022-05-10] MEDS ORDERED: ACETAMINOPHEN 500 MG TABLET (FP) PO ONE (19:31)
[2022-05-10] MEDS ORDERED: ACETAMINOPHEN 325 MG TABLET (FP) ONE (19:39)
[2022-05-10 20:11] LABS: BASO % 0.4 % (0-2.0); HEMATOCRIT 28.3 % (32.4-45.2); HEMOGLOBIN 8.4 GM/dL (10.7-15.3); LYMPH % 6.2 % (8-40); MCHC 29.8 g/dl (32.0-36.0); MEAN PLT VOLUME 8.6 fl (7.5-11.1); MONO % 7.1 % (3.8-10.2); NEUT % 86.3 % (42.8-82.8); PLATELET COUNT 195 10^3/uL (134-434); RBC 4.49 M/mm3 (3.60-5.2); RDW 20.6 % (11.6-15.6); WHITE BLOOD COUNT 13.3 K/mm3 (4.0-10.0)
[2022-05-10 20:21] LABS: ALBUMIN 3.8 g/dl (3.4-5.0); CALCIUM 8.7 mg/dL (8.5-10.1)
[2022-05-10 20:22] LABS: BLOOD UREA NITROGEN 12.4 mg/dL (7-18); MCH 18.8 pg (25.7-33.7)
[2022-05-10 20:25] LABS: CREATININE 0.8 mg/dL (0.55-1.3)
[2022-05-10 20:26] LABS: BILIRUBIN,TOTAL 0.3 mg/dL (0.2-1); TOT PROT 7.5 g/dl (6.4-8.2)
[2022-05-10 21:46] LABS: ANISOCYTOSIS 3+; MACROCYTOSIS 1+; OVALOCYTE 1+; TARGET CELLS 1+
== END 2022-05-10 23:46 | disposition home or self-care (01) ==
LOC: JER 18:59
DX: M54.89 Other dorsalgia (principal); M79.89 Other specified soft tissue disorders; W10.8XXA Fall (on) (from) other stairs and steps, initial encounter
CPT/HCPCS: 36415; 71046-TC-FY; 71250-TC; 73590-TC-LT-FY; 73610-TC-LT-FY; 73630-TC-LT; 80053; 84703; 85025; 99284-25

== ENCOUNTER 2022-09-07 18:32 | Observation (INO) | payer OTHER ==
[2022-09-07 20:35] LABS: BASO % 1.1 % (0-2.0); EOS % 1.6 % (0-4.5); HEMATOCRIT 26.9 % (32.4-45.2); HEMOGLOBIN 7.6 GM/dL (10.7-15.3); LYMPH % 50.1 % (8-40); MCHC 28.4 g/dl (32.0-36.0); MEAN CELL VOLUME 59.3 fl (80-96); MEAN PLT VOLUME 8.4 fl (7.5-11.1); MONO % 12.5 % (3.8-10.2); NEUT % 34.7 % (42.8-82.8); PLATELET COUNT 183 10^3/uL (134-434); RBC 4.53 M/mm3 (3.60-5.2); RDW 19.3 % (11.6-15.6); WHITE BLOOD COUNT 4.4 K/mm3 (4.0-10.0)
[2022-09-07 20:42] LABS: MCH 16.8 pg (25.7-33.7)
[2022-09-07 20:47] LABS: INR 1.07 (0.83-1.09); PROTHROMBIN TIME (PATIENT) 12.4 SEC (9.7-13.0)
[2022-09-07 20:50] LABS: ACTIVATED PTT 28.4 SECONDS (25.2-36.5); POTASSIUM 3.6 mmol/L (3.5-5.1)
[2022-09-07 20:52] LABS: ALBUMIN 3.9 g/dl (3.4-5.0); CALCIUM 8.9 mg/dL (8.5-10.1)
[2022-09-07 20:53] LABS: BLOOD UREA NITROGEN 9.7 mg/dL (7-18)
[2022-09-07 20:55] LABS: CREATININE 0.7 mg/dL (0.55-1.3)
[2022-09-07 20:57] LABS: BILIRUBIN,TOTAL 0.3 mg/dL (0.2-1); TOT PROT 7.5 g/dl (6.4-8.2)
[2022-09-07 21:34] LABS: ANISOCYTOSIS 2+; MACROCYTOSIS 0; OVALOCYTE 1+; TARGET CELLS 1+
[2022-09-07 21:55] LABS: EPI CELLS 9 /uL (0-25.1); HYALINE CASTS 2 /uL (0-3.1); URINE APPEARANCE CLEAR; URINE BACTERIA 5 /uL (0-1359); URINE BILIRUBIN NEGATIVE (NEGATIVE); URINE COLOR YELLOW; URINE GLUCOSE (UA) NEGATIVE (NEGATIVE); URINE KETONE TRACE (NEGATIVE); URINE LEUK ESTERASE NEGATIVE (NEGATIVE); URINE NITRITE NEGATIVE (NEGATIVE); URINE PROTEIN TRACE (NEGATIVE); URINE RBC 211 /uL (0-23.9); URINE WBC 12 /uL (0-25.8)
[2022-09-07] MEDS ORDERED: ACETAMINOPHEN 325 MG TABLET (FP) PO PRN (22:40)
[2022-09-07] MEDS ORDERED: DOCUSATE SODIUM 100 MG CAPSULE (FP) PO PRN (22:40)
[2022-09-08 06:51] VITALS: RESP 18
[2022-09-08 06:51] LABS: POTASSIUM 3.7 mmol/L (3.5-5.1)
[2022-09-08 06:55] LABS: BLOOD UREA NITROGEN 7.6 mg/dL (7-18); CALCIUM 8.6 mg/dL (8.5-10.1); MAGNESIUM 1.9 mg/dL (1.8-2.4)
[2022-09-08 06:58] LABS: PHOSPHOROUS 4.2 mg/dL (2.5-4.9)
[2022-09-08 06:59] LABS: CREATININE 0.6 mg/dL (0.55-1.3)
[2022-09-08 07:21] LABS: BASO % 0.7 % (0-2.0); EOS % 1.9 % (0-4.5); HEMATOCRIT 30.5 % (32.4-45.2); HEMOGLOBIN 9.1 GM/dL (10.7-15.3); MEAN CELL VOLUME 62.5 fl (80-96); MEAN PLT VOLUME 8.9 fl (7.5-11.1); MONO % 14.6 % (3.8-10.2); NEUT % 37.8 % (42.8-82.8); PLATELET COUNT 163 10^3/uL (134-434); RBC 4.88 M/mm3 (3.60-5.2); RDW 22.7 % (11.6-15.6); WHITE BLOOD COUNT 4.6 K/mm3 (4.0-10.0)
[2022-09-08 07:22] LABS: MCH 18.8 pg (25.7-33.7)
[2022-09-08 13:30] VITALS: BMI 18.3
[2022-09-08 13:39] VITALS: BP 125/75; PULSE 79; TEMP 97.9
[2022-09-08] MEDS ORDERED: medroxyPROGESTERone ACET 150 MG/1 ML VIAL IM ONE (14:49)
[2022-09-08] MEDS ORDERED: FERROUS SO4 325 MG TABLET (FP) PO SCH (22:00)
== END 2022-09-08 17:25 | disposition home or self-care (01) ==
LOC: JER 18:32 → JERBED 22:27 → J7W 09-08 12:40
PROVIDERS: ADMIT Internal Medicine; ATTEND Nurse Practitioner Family
PROC: 3E023GC Introduction of Other Therapeutic Substance into Muscle, Percutaneous Approach (ICD-10-PCS; principal; 2022-09-07)
PROC: 30233N1 Transfusion of Nonautologous Red Blood Cells into Peripheral Vein, Percutaneous Approach (ICD-10-PCS; 2022-09-07)
DX: D50.0 Iron deficiency anemia secondary to blood loss (chronic) (principal); N93.9 Abnormal uterine and vaginal bleeding, unspecified; Z88.0 Allergy status to penicillin; R07.9 Chest pain, unspecified
CPT/HCPCS: 36415; 36430; 71045-TC-FY; 76856-TC; 80048; 80053; 81003; 82728; 83540; 83550; 83615; 83735; 84100; 84484; 84703; 85025; 85045; 85610; 85730; 86850; 86900; 86901; 86922; 87077; 87081; 87086; 87491; 87591; 87661; 93005; 93010; 96372; 99285-25; G0378; P9058

== ENCOUNTER → 2022-09-26 | Emergency (ER) | payer OTHER ==
[~2022-09-26] MED LIST: DIPHTH,PERTUSS(ACELL),TET 0.5 ML DISP.SYRIN IM ONE
[2022-09-26 12:23] VITALS: BP 101/63; PULSE 89; RESP 18; TEMP 98.9; BMI 18.3
[2022-09-26 14:17] LABS: BASO % 1.6 % (0-2.0); EOS % 0.2 % (0-4.5); HEMATOCRIT 30.2 % (32.4-45.2); HEMOGLOBIN 8.5 GM/dL (10.7-15.3); LYMPH % 24.6 % (8-40); MCHC 28.1 g/dl (32.0-36.0); MEAN CELL VOLUME 65.1 fl (80-96); MEAN PLT VOLUME 9.4 fl (7.5-11.1); MONO % 4.8 % (3.8-10.2); NEUT % 68.8 % (42.8-82.8); PLATELET COUNT 244 10^3/uL (134-434); RBC 4.64 M/mm3 (3.60-5.2); RDW 23.4 % (11.6-15.6); WHITE BLOOD COUNT 7.9 K/mm3 (4.0-10.0)
[2022-09-26 14:19] LABS: MCH 18.3 pg (25.7-33.7)
[2022-09-26 14:27] LABS: CALCIUM 8.9 mg/dL (8.5-10.1)
[2022-09-26 14:28] LABS: ALBUMIN 3.9 g/dl (3.4-5.0); BLOOD UREA NITROGEN 11.6 mg/dL (7-18)
[2022-09-26 14:31] LABS: CREATININE 0.6 mg/dL (0.55-1.3)
[2022-09-26 14:32] LABS: BILIRUBIN,TOTAL 0.3 mg/dL (0.2-1); TOT PROT 7.4 g/dl (6.4-8.2)
== END | disposition left against medical advice (07) ==
LOC: JERFT 12:13 → JER 12:13
PROC: 3E0234Z Introduction of Serum, Toxoid and Vaccine into Muscle, Percutaneous Approach (ICD-10-PCS; principal; 2022-09-26)
DX: S31.813A Puncture wound without foreign body of right buttock, initial encounter (principal); X99.9XXA Assault by unspecified sharp object, initial encounter
CPT/HCPCS: 36415; 80053; 84703; 85025; 90471; 90715; 99283-25

== ENCOUNTER 2023-08-23 10:40 | Observation (INO) | payer OTHER ==
[2023-08-23 10:52] VITALS: BMI 18.8
[2023-08-23] MEDS: SODIUM CHLORIDE 1,000 ML IV STA (12:22)
[2023-08-23 12:30] LABS: BASO % 2.2 % (0-2.0); EOS % 0.9 % (0-4.5); HEMATOCRIT 22.2 % (32.4-45.2); LYMPH % 38.7 % (8-40); MCH 14.8 pg (25.7-33.7); MCHC 26.7 g/dl (32.0-36.0); MEAN CELL VOLUME 55.2 fl (80-96); MEAN PLT VOLUME 8.2 fl (7.5-11.1); MONO % 13.3 % (3.8-10.2); NEUT % 44.9 % (42.8-82.8); PLATELET COUNT 174 10^3/uL (134-434); RBC 4.02 M/mm3 (3.60-5.2); WHITE BLOOD COUNT 4.3 K/mm3 (4.0-10.0)
[2023-08-23 12:32] LABS: HEMOGLOBIN 5.9 GM/dL (10.7-15.3)
[2023-08-23 12:34] LABS: EPI CELLS 13 /uL (0-25.1); HYALINE CASTS 0 /uL (0-3.1); URINE APPEARANCE CLEAR; URINE BACTERIA 103 /uL (0-1359); URINE BILIRUBIN NEGATIVE (NEGATIVE); URINE COLOR YELLOW; URINE GLUCOSE (UA) NEGATIVE (NEGATIVE); URINE KETONE NEGATIVE (NEGATIVE); URINE LEUK ESTERASE TRACE (NEGATIVE); URINE NITRITE NEGATIVE (NEGATIVE); URINE PROTEIN NEGATIVE (NEGATIVE); URINE RBC 7 /uL (0-23.9); URINE WBC 6 /uL (0-25.8)
[2023-08-23 12:44] LABS: HCG,QUALITATIVE URINE Negative
[2023-08-23 13:10] LABS: POTASSIUM 3.7 mmol/L (3.5-5.1)
[2023-08-23 13:12] LABS: ALBUMIN 4.2 g/dl (3.4-5.0); BLOOD UREA NITROGEN 11.7 mg/dL (7-18); CALCIUM 9.4 mg/dL (8.5-10.1)
[2023-08-23 13:17] LABS: BILIRUBIN,TOTAL 0.6 mg/dL (0.2-1); TOT PROT 7.9 g/dl (6.4-8.2)
[2023-08-23 13:18] LABS: CREATININE 0.7 mg/dL (0.55-1.3)
[2023-08-23 18:24] VITALS: RESP 20
[2023-08-23 21:30] VITALS: BP 95/54; PULSE 76; TEMP 98.9
[2023-08-23 22:09] LABS: HEMATOCRIT 23.6 % (32.4-45.2); MEAN CELL VOLUME 59.3 fl (80-96); MEAN PLT VOLUME 8.5 fl (7.5-11.1); PLATELET COUNT 137 10^3/uL (134-434); RBC 3.97 M/mm3 (3.60-5.2); RDW 24.3 % (11.6-15.6); WHITE BLOOD COUNT 5.6 K/mm3 (4.0-10.0)
[2023-08-23 22:15] LABS: MCH 16.6 pg (25.7-33.7)
[2023-08-23 22:19] LABS: HEMOGLOBIN 6.6 GM/dL (10.7-15.3)
== END 2023-08-23 22:15 | disposition left against medical advice (07) ==
LOC: JER 10:40 → JERBED 14:02 → J5S 16:02
PROVIDERS: ADMIT Internal Medicine; ATTEND Internal Medicine
PROC: 3E0337Z Introduction of Electrolytic and Water Balance Substance into Peripheral Vein, Percutaneous Approach (ICD-10-PCS; principal; 2023-08-23)
PROC: 30233N1 Transfusion of Nonautologous Red Blood Cells into Peripheral Vein, Percutaneous Approach (ICD-10-PCS; 2023-08-23)
DX: D50.9 Iron deficiency anemia, unspecified (principal); R53.1 Weakness; N92.1 Excessive and frequent menstruation with irregular cycle; Z88.0 Allergy status to penicillin
CPT/HCPCS: 36415; 36430; 80053; 81003; 84703; 85025; 85027; 86922; 93005; 93010; 96360; 99285-25; G0378; P9058

== ENCOUNTER 2023-08-24 10:20 | Emergency (ER) | payer OTHER ==
[2023-08-24 10:26] VITALS: BMI 18.8
[2023-08-24 11:22] LABS: EOS % 0.3 % (0-4.5); HEMATOCRIT 26.1 % (32.4-45.2); HEMOGLOBIN 7.6 GM/dL (10.7-15.3); LYMPH % 19.9 % (8-40); MEAN CELL VOLUME 57.8 fl (80-96); MEAN PLT VOLUME 8.6 fl (7.5-11.1); MONO % 2.3 % (3.8-10.2); NEUT % 76.5 % (42.8-82.8); PLATELET COUNT 160 10^3/uL (134-434); RBC 4.52 M/mm3 (3.60-5.2); RDW 22.7 % (11.6-15.6)
[2023-08-24 11:36] LABS: MCH 16.7 pg (25.7-33.7)
[2023-08-24 15:21] VITALS: BP 110/80; PULSE 93; RESP 18; TEMP 98.9
[2023-08-24 15:21] LABS: BASO % 1.6 % (0-2.0); EOS % 0.6 % (0-4.5); HEMATOCRIT 28.1 % (32.4-45.2); HEMOGLOBIN 8.5 GM/dL (10.7-15.3); MCHC 30.1 g/dl (32.0-36.0); MEAN CELL VOLUME 59.9 fl (80-96); MEAN PLT VOLUME 8.3 fl (7.5-11.1); MONO % 11.8 % (3.8-10.2); PLATELET COUNT 140 10^3/uL (134-434); RDW 28.4 % (11.6-15.6); WHITE BLOOD COUNT 5.7 K/mm3 (4.0-10.0)
== END 2023-08-24 15:52 | disposition home or self-care (01) ==
LOC: JER 10:20
PROC: 30233N1 Transfusion of Nonautologous Red Blood Cells into Peripheral Vein, Percutaneous Approach (ICD-10-PCS; principal; 2023-08-24)
DX: R06.02 Shortness of breath (principal); R53.1 Weakness; R42 Dizziness and giddiness; N92.0 Excessive and frequent menstruation with regular cycle; D50.9 Iron deficiency anemia, unspecified
CPT/HCPCS: 36415; 36430; 85025; 86922; 93005; 93010; 99284-25; P9038; P9058

== ENCOUNTER 2024-05-23 10:11 | Emergency (ER) | payer OTHER ==
[2024-05-23 10:22] VITALS: BP 116/78; PULSE 109; RESP 18; TEMP 98.7; BMI 19.5
[2024-05-23 12:03] LABS: THROAT:GRP A STREP NOT DETECTED (NOTDETECTED)
== END 2024-05-23 11:42 | disposition home or self-care (01) ==
LOC: JERFT 10:11
DX: R05.9 Cough, unspecified (principal); R09.89 Other specified symptoms and signs involving the circulatory and respiratory systems; J06.9 Acute upper respiratory infection, unspecified
CPT/HCPCS: 0241U-QW; 87651; 99283-25

== ENCOUNTER 2024-08-19 10:21 | Observation (INO) | payer OTHER ==
[2024-08-19 11:14] VITALS: BMI 18.8
[2024-08-19 12:20] LABS: RDW 20.3 % (12.1-16.5)
[2024-08-19 12:22] LABS: MCHC 23.7 g/dl (32.2-35.5); MEAN CELL VOLUME 62.7 fl (79.4-94.8)
[2024-08-19 12:28] LABS: INR 1.11 (0.83-1.09); PROTHROMBIN TIME (PATIENT) 12.2 SEC (9.7-13.0)
[2024-08-19 12:31] LABS: ACTIVATED PTT 29.6 SECONDS (25.2-36.5)
[2024-08-19 13:53] LABS: CO2 26 mmol/L (21-32); CREATININE 0.5 mg/dL (0.55-1.3); GLUCOSE,RANDOM 87 mg/dL (74-106); SGOT/AST 18 U/L (15-37)
[2024-08-19 13:54] LABS: SGPT/ALT 15 U/L (13-61); TOT PROT 7.1 g/dl (6.4-8.2)
[2024-08-19 13:58] LABS: ALK PHOS 53 U/L (45-117)
[2024-08-19 16:18] LABS: HIV INTERPRETATION NEGATIVE (NEGATIVE)
[2024-08-19 16:19] LABS: HCV DIAGNOSTIC IN-HOUSE W/RFLX NON-REACTIVE (NONREACTIVE)
[2024-08-19 16:22] VITALS: RESP 18
[2024-08-19 16:44] LABS: IRON SERUM 10 ug/dL (50-175)
[2024-08-19] MEDS: IRON SUCROSE INJECTION 200 MG in SODIUM CHLORIDE 100 ML IVPB ONE (17:50)
[2024-08-20 09:11] LABS: MCHC 25.3 g/dl (32.2-35.5); MEAN CELL VOLUME 63.0 fl (79.4-94.8); RDW 21.5 % (12.1-16.5)
[2024-08-20 10:11] LABS: CREATININE 0.5 mg/dL (0.55-1.3)
[2024-08-20 11:03] VITALS: BP 104/71; PULSE 70; TEMP 98
[2024-08-20 11:23] LABS: GLUCOSE,RANDOM 86.0 mg/dL (74-106)
[2024-08-20 11:38] LABS: CO2 24.0 mmol/L (21-32)
== END 2024-08-20 11:25 | disposition home or self-care (01) ==
LOC: JERFT 10:21 → JERBED 14:47 → J8W 18:43
PROVIDERS: ADMIT Internal Medicine; ATTEND Nurse Practitioner Acute Care
PROC: 30233N1 Transfusion of Nonautologous Red Blood Cells into Peripheral Vein, Percutaneous Approach (ICD-10-PCS; principal; 2024-08-19)
PROC: 3E033GC Introduction of Other Therapeutic Substance into Peripheral Vein, Percutaneous Approach (ICD-10-PCS; 2024-08-19)
DX: D21.9 Benign neoplasm of connective and other soft tissue, unspecified (principal); D50.9 Iron deficiency anemia, unspecified; N93.9 Abnormal uterine and vaginal bleeding, unspecified; J45.909 Unspecified asthma, uncomplicated; Z88.8 Allergy status to other drugs, medicaments and biological substances
CPT/HCPCS: 36415; 36430; 80048; 80053; 82728; 83540; 83550; 84703; 85025; 85610; 85730; 86803; 86850; 86900; 86901; 86922; 87389; 93005; 93010; 96365; 99285-25; G0378; J1756; P9058